=== PATIENT | female | born 1955 | race African-American/Black ===

== ENCOUNTER → 2019-02-20 | Outpatient (CLI) | payer OTHER ==
--- NOTE | 2019-02-20 16:39 | 2DMMODE ---
[facility] [place] [address] 2 D/M-MODE ECHOCARDIOGRAM Name: BEBETO JAY Room #: REG [facility]#: [id number] ������������� Admission: 02/20/19 ������������� Attend Phys: Sanford Pelayo, Discharge: ��� ������������� ��� Date of : 53 Date of Service: 02/20/19 1638 �� Report #: [id number] �������� ��������������������������������������������[id number] THIS REPORT FOR: //name// APPROVED REPORT Study performed: 02/20/2019 14:33:29 EXAM: Comprehensive 2D, Doppler, and color-flow Echocardiogram Patient Location: Out-Patient Room #: Echo lab 2 Status: routine BSA: 1.84 HR: 82 bpm BP: 106/74 mmHg Rhythm: NSR Other Information Study Quality: Good Indications Enlarged Aorta 2D Dimensions RVDd: 24.63 mm IVSd: 7.74 (7-11mm) LVOT Diam: 17.60 (18-24mm) LVDd: 40.39 mm PWd: 8.57 (7-11mm) Ascending Ao: 38.44 (22-36mm) LVDs: 30.00 (25-40mm) Aortic Root: 29.09 mm IVC: 17.00 mm Volumes Left Atrial Volume (Systole) Single Plane 4CH: 60.65 mL Single Plane 2CH: 58.44 mL LA ESV Index: 37.00 mL/m2 Aortic Valve AoV Peak Morgan.: 1.55 m/s AO Peak Gr.: 9.64 mmHg LVOT Max P.88 mmHg LVOT Max V: 1.21 m/s TOMY Vmax: 1.90 cm2 Mitral Valve E/A Ratio: 0.9 MV Decel. Time: 181.20 ms MV E Max Morgan.: 0.92 m/s [facility] [place] [place] [place] [address] 2 D/M-MODE ECHOCARDIOGRAM Name: BEBETO JAY Room #: [facility]#: [id number] ������������� Admission: 02/20/19 ������������� Attend Phys: Sanford Pelayo, Discharge: ��� ������������� ��� Date of : 53 Date of Service: 02/20/19 1638 �� Report #: [id number] �������� ��������������������������������������������[id number] MV A Morgan.: 1.02 m/s MV PHT: 52.55 ms IVRT: 133.79 ms Pulmonary Valve PV Peak Morgan.: 1.12 m/s PV Peak Gr.: 5.03 mmHg NM End Vmax: 1.19 m/s Pulmonary Vein P Vein S: 0.96 m/s P Vein A: 0.41 m/s P Vein D: 0.52 m/s P Vein A Dur.: 133.8 msec P Vein S/D Ratio: 1.85 Tricuspid Valve TR Peak Morgan.: 2.54 m/s TR Peak Gr.: 25.88 mmHg PA Pressure: 31.00 mmHg Left Ventricle The left ventricle is normal size. There is normal LV segmental wall motion. There is normal left ventricular wall thickness. The left ventricular systolic function is normal. The left ventricular ejection fraction is within the normal range. LVEF is 55-60%. Mild diastolic dysfunction is present (impaired relaxation pattern). Right Ventricle The right ventricle is normal size. The right ventricular systolic function is normal. Atria Left atrium is mildly dilated. The right atrium size is normal. Aortic Valve The aortic valve is mildly sclerotic Trace to mild aortic regurgitation. There is no aortic valvular stenosis. Mitral Valve The mitral valve is normal in structure. Trace mitral regurgitation. No evidence of mitral valve stenosis. Tricuspid Valve The tricuspid valve is normal in structure. There is mild tricuspid regurgitation. Estimated PAP 30 mmHg. There is mild pulmonary hypertension. [address] [address] 2 D/M-MODE ECHOCARDIOGRAM Name: PIERREBEBETO RUTH Room #: REG [place]#: [id number] ������������� Admission: 02/20/19 ������������� Attend Phys: Sanford Pelayo, Discharge: ��� ������������� ��� Date of : 53 Date of Service: 02/20/19 1638 �� Report #: [id number] �������� ��������������������������������������������[id number] Pulmonic Valve The pulmonary valve is normal in structure. Trace pulmonic regurgitation. Great Vessels The aortic root is normal in size. Ascending aorta is mildly dilated (3.9cm) IVC is normal in size and collapses >50% with inspiration. Pericardium There is no pericardial effusion. <Conclusion> The left ventricular systolic function is normal. There is normal LV segmental wall motion. LVEF is 55-60%. Mild diastolic dysfunction The aortic valve is mildly sclerotic. Trace to mild aortic regurgitation, no stenosis. The mitral valve is normal in structure. Trace mitral regurgitation. There is mild tricuspid regurgitation. Estimated pulmonary artery pressure of 30 mmHg. Ascending aorta is mildly dilated (3.9cm) There is no pericardial effusion. ��������������������������������������������� <ELECTRONICALLY SIGNED> ���������������������������������������� By: Sanford Pelayo MD, FACC ��������������������������������������������� 02/20/19 1638 1638 1638 Sanford Pelayo MD, FACC /INF
== END ==
LOC: CV 08:49
DX: I08.2 Rheumatic disorders of both aortic and tricuspid valves (principal); I27.20 Pulmonary hypertension, unspecified; I77.810 Thoracic aortic ectasia; Z88.8 Allergy status to other drugs, medicaments and biological substances

== ENCOUNTER → 2020-02-22 | Outpatient (CLI) | payer OTHER | LOC: SJCVCIMAG 09:11 | PROVIDERS: ATTEND Internal Medicine | DX: I08.8 Other rheumatic multiple valve diseases (principal); I77.89 Other specified disorders of arteries and arterioles; I70.0 Atherosclerosis of aorta; E78.5 Hyperlipidemia, unspecified; E78.00 Pure hypercholesterolemia, unspecified; Z82.49 Family history of ischemic heart disease and other diseases of the circulatory system; Z79.899 Other long term (current) drug therapy ==

== ENCOUNTER → 2020-08-22 | Outpatient (CLI) | payer OTHER | LOC: SJCVCIMAG 09:06 | PROVIDERS: ATTEND Internal Medicine | DX: I08.8 Other rheumatic multiple valve diseases (principal); I77.810 Thoracic aortic ectasia; R00.0 Tachycardia, unspecified; E78.5 Hyperlipidemia, unspecified; E78.00 Pure hypercholesterolemia, unspecified; M85.80 Other specified disorders of bone density and structure, unspecified site; Z82.49 Family history of ischemic heart disease and other diseases of the circulatory system; Z79.899 Other long term (current) drug therapy ==

== ENCOUNTER → 2021-11-06 | Outpatient (CLI) | payer OTHER | LOC: SJCVC 11:21 | PROVIDERS: ATTEND Internal Medicine | DX: I77.89 Other specified disorders of arteries and arterioles (principal); I35.8 Other nonrheumatic aortic valve disorders; E78.5 Hyperlipidemia, unspecified; K42.9 Umbilical hernia without obstruction or gangrene; Z90.49 Acquired absence of other specified parts of digestive tract; Z90.710 Acquired absence of both cervix and uterus; Z98.890 Other specified postprocedural states; Z79.899 Other long term (current) drug therapy; Z88.1 Allergy status to other antibiotic agents; Z88.5 Allergy status to narcotic agent; Z88.8 Allergy status to other drugs, medicaments and biological substances ==